=== PATIENT | male | born 1960 | race Caucasian/White ===

== ENCOUNTER 2016-11-26 08:15 | Outpatient (CLI) | payer OTHER ==
[2016-11-26] MEDS ORDERED: Iopamidol 370 76% 100 ML VIAL ONE (09:00)
--- NOTE | 2016-11-27 16:34 | CT ---
CHEST CT SCAN: Date: 11/26/16 HISTORY: Shortness of breath and wheezing. FINDINGS: There is no mediastinal mass or adenopathy. There is a possible small hiatal hernia. There are multi ple nodules noted bilaterally, the largest measures approximately 1.9 x 1.9 x 2.1 cm. The second lar gest nodule is also pleural based in the left lower lobe measuring approximately 0.8 x 1.0 cm, as we ll as several other nodules primarily subpleural or pleural based measuring up to 0.6 cm in size. No pleural effusion. Visualized upper abdomen is unremarkable. IMPRESSION: Somewhat poorly circumscribed 1.9 x 1.9 x 2.1 cm diameter left lower lobe pulmonary nodule with oli ral other smaller pulmonary nodules, certainly metastatic disease is a consideration. Consider follo w-up PET scan for further assessment. CODE T. POS: SOPHIA
== END 2016-11-26 08:16 | disposition home or self-care (01) ==
LOC: NAV CT 08:15
PROVIDERS: ATTEND Family Medicine
DX: R91.1 Solitary pulmonary nodule (principal); J40 Bronchitis, not specified as acute or chronic; R05 Cough; R91.8 Other nonspecific abnormal finding of lung field
CPT/HCPCS: 71260

== ENCOUNTER 2017-01-18 13:34 | Outpatient (CLI) | payer OTHER | END 2017-01-18 13:35 | disposition home or self-care (01) | LOC: NAV LABSP 13:34 | PROVIDERS: ATTEND Family Medicine | DX: J41.1 Mucopurulent chronic bronchitis (principal); J18.9 Pneumonia, unspecified organism | CPT/HCPCS: 87070; 87205 ==

== ENCOUNTER 2017-08-18 17:46 | Outpatient (CLI) | payer OTHER ==
--- NOTE | 2017-08-18 20:49 | CT ---
NONCONTRAST CT [facility] 08/18/17 HISTORY: Followup pulmonary nodules. COMPARISON: 11/26/16. FINDINGS: The previously described bilateral pulmonary nodules are again seen and stable in size and appearance . Largest pulmonary nodule is again seen in the left lower lobe which is irregularly shaped and measu res 2.3 cm x 1.8 cm in greatest axial dimensions with greatest axial dimensions on the prior study of 2.5 cm x 1.9 cm. Just inferior to this region at the lateral aspect of the left lung base, there is a 1.1 cm pulmonary nodule also stable in size from the prior exam. There is a pulmonary nodule seen i n the region of the lingula which is pleural based which is better delineated on today's examination and this is likely related to slight selection on the prior study and this measures approximately 9 m m. Pulmonary nodule in the right middle lobe is again seen and unchanged in size which is adjacent to th e pleura as well. Just inferior to this region within the right middle lobe there is a very faint les s than 4 mm pulmonary nodule present. There is also a stable pulmonary nodule at the posterior right lung base and the overall measurement is difficult to measure on this exam due to the subsegmental at electasis at the right lung base closely adjacent to this nodule. No new pulmonary nodular mass is present. calcified granuloma is again seen at the right lung base. There is limited evaluation of the mediastinal structures secondary to lack of intravenous contrast, but no enlarged lymph nodes are appreciated. No other interval change. IMPRESSION: Overall stable bilateral pulmonary nodules. Measurements of the larger pulmonary nodule in the left l ower lobe are slightly improved from the prior exam. Given multiplicity of these pulmonary nodules, m etastatic disease cannot be entirely excluded. PET CT scan examination may be helpful for assessment of the larger pulmonary nodules in the left lower lobe. POS: AMINATA
== END 2017-08-18 17:47 | disposition home or self-care (01) ==
LOC: NAV CT 17:46
PROVIDERS: ATTEND Internal Medicine Critical Care Medicine
DX: R91.1 Solitary pulmonary nodule (principal); R91.8 Other nonspecific abnormal finding of lung field
CPT/HCPCS: 71250

== ENCOUNTER 2018-09-13 16:12 | Outpatient (CLI) | payer OTHER ==
--- NOTE | 2018-09-13 18:43 | CT ---
CT OF [facility]ORAX WITHOUT CONTRAST: 09/13/18 INDICATION: Followup pulmonary nodules. COMPARISON: Prior exam dated 08/18/17, 11/26/16. FINDINGS: Bilateral pulmonary nodules are stable. The largest pulmonary nodule is seen within the left lower lo be measuring 1.6 x 2.5 cm. Additional 1 cm pulmonary nodule in the left lower lobe. There is a 1 cm p ulmonary nodule in the lingula which is stable. There is a 6 mm pulmonary nodule in the right lower l obe which is stable. There is a 7 mm pulmonary nodule within the right upper lobe which is stable. Th ere is a 7 mm pulmonary nodule within the right upper lobe which is stable. No new pulmonary nodules are evident. There are other scattered sub 4 mm pulmonary nodules which are stable. No definite enlarged lymph nodes or grossly evident within the mediastinum or axillary region. Adrena l glands are normal appearing. No definite acute osseous abnormality is evident. IMPRESSION: Stable pulmonary nodules. Follow up examination in 3 to 6 months may be helpful to document a full tw o years worth of stability. POS: OFF
== END 2018-09-13 16:13 | disposition home or self-care (01) ==
LOC: NAV RAD 16:12
PROVIDERS: ATTEND Internal Medicine Critical Care Medicine
DX: R91.8 Other nonspecific abnormal finding of lung field (principal)
CPT/HCPCS: 71250

== ENCOUNTER 2021-04-10 10:16 | Outpatient (CLI) | payer OTHER | END 2021-04-10 10:17 | disposition home or self-care (01) | LOC: NAV LAB 10:16 | PROVIDERS: ATTEND Pathology Anatomic Pathology & Clinical Pathology | DX: Z00.00 Encounter for general adult medical examination without abnormal findings (principal) | CPT/HCPCS: 82465; G0103 ==

== ENCOUNTER 2025-05-16 08:10 | Emergency (ER) | payer BC, OTHER ==
[2025-05-16] MEDS ORDERED: Azithromycin 250 MG TAB ONE (09:30)
[2025-05-16] MEDS ORDERED: predniSONE 20 MG TAB ONE (09:30)
== END 2025-05-16 09:36 | disposition home or self-care (01) ==
LOC: NAV ERS 08:10
DX: J18.9 Pneumonia, unspecified organism (principal); R03.0 Elevated blood-pressure reading, without diagnosis of hypertension; F17.290 Nicotine dependence, other tobacco product, uncomplicated
CPT/HCPCS: 71046; 87081; 87430; J7512